=== PATIENT | male | born 1980 | race Caucasian/White ===

== ENCOUNTER 2017-05-21 18:21 | Emergency (ER) | payer OTHER ==
[~2017-05-21] VITALS: Ht 175.3 cm; Wt 81.6 kg
[~2017-05-21 18:21] MED LIST: DICL100G13 TOP; GABA-488 PO; HYDR-757 PO; IBP800T PO; PROP160C2 PO
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
[2017-05-21] MEDS ORDERED: fentaNYL INJECTION 100 MCG/2 ML AMP IVP ONE (18:45)
[2017-05-21] MEDS ORDERED: NS 100 ML (IVPB) BAG IV ONE (19:15)
[2017-05-21] MEDS ORDERED: IOHEXOL 350 MG/ML 100 ML (OMNIPAQUE 350) VIAL IV ONE (19:15)
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
[2017-05-21 19:43] LABS: BASOPHILS % (AUTO) 0 % (0-10); EOSINOPHILS # (AUTO) 0.3 10^3/uL (0.0-0.3); EOSINOPHILS % (AUTO) 3 % (0-10); LYMPHOCYTES % (AUTO) 20 % (12-44); MEAN CORPUSCULAR HEMOGLOBIN 31 PG (25-34); MEAN CORPUSCULAR HGB CONC 35 G/DL (32-36); MEAN CORPUSCULAR VOLUME 88 FL (80-99); MEAN PLATELET VOLUME 10.7 FL (7.4-10.4); MONOCYTES # (AUTO) 0.5 X 10^3 (0.0-1.0); MONOCYTES % (AUTO) 5 % (0-12); NEUTROPHILS # (AUTO) 6.9 X 10^3 (1.8-7.8); NEUTROPHILS % (AUTO) 72 % (42-75); PLATELET COUNT 218 10^3/uL (130-400); RED BLOOD COUNT 4.56 10^6/uL (4.35-5.85); RED CELL DISTRIBUTION WIDTH 12.6 % (10.0-14.5); WHITE BLOOD COUNT 9.7 10^3/uL (4.3-11.0)
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
[2017-05-21 20:04] LABS: ALANINE AMINOTRANSFERASE 38 U/L (0-55); ALBUMIN 4.2 GM/DL (3.2-4.5); ANION GAP 9 MMOL/L (5-14); ASPARTATE AMINO TRANSFERASE 25 U/L (5-34); BILIRUBIN,TOTAL 0.7 MG/DL (0.1-1.0); BLOOD UREA NITROGEN 11 MG/DL (7-18); BUN/CREATININE RATIO 14; CALCIUM 8.7 MG/DL (8.5-10.1); CARBON DIOXIDE 22 MMOL/L (21-32); CHLORIDE 107 MMOL/L (98-107); CREATININE SERUM 0.81 MG/DL (0.60-1.30); GFR ESTIMATED > 60; GLUCOSE 94 MG/DL (70-105); POTASSIUM 3.6 MMOL/L (3.6-5.0); SODIUM 138 MMOL/L (135-145); TOTAL PROTEIN 6.7 GM/DL (6.4-8.2)
[2017-05-21] MEDS ORDERED: KETOROLAC 30 MG/ML VIAL IVP ONE (20:30)
[2017-05-21] MEDS ORDERED: HYDR-757 PO (20:39)
[2017-05-21 21:09] VITALS: BP 118/89
== END 2017-05-21 21:09 | disposition home or self-care (01) ==
LOC: EDUNIT# 18:21 → ER 18:22
DX: M25.552 Pain in left hip; V49.40XA Driver injured in collision with unspecified motor vehicles in traffic accident, initial encounter; Z87.828 Personal history of other (healed) physical injury and trauma; F41.9 Anxiety disorder, unspecified; Z90.89 Acquired absence of other organs
CPT/HCPCS: 36415; 70450; 71260; 72125; 73552; 73590; 74177; 80053; 83690; 85025; 96374; 96375

== ENCOUNTER → 2017-06-12 | Outpatient (CLI) | payer OTHER ==
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
== END ==
LOC: RAD 09:15
PROVIDERS: ATTEND Nurse Practitioner Family
DX: M79.605 Pain in left leg (principal)
CPT/HCPCS: 73700

== ENCOUNTER → 2017-07-03 | Outpatient (CLI) | payer OTHER ==
--- NOTE | 2017-07-03 14:44 | Diagnostic Imaging Report ---
PROCEDURE: MRI left joint lower extremity without contrast. TECHNIQUE: Multiplanar, multisequence non contrast-enhanced MRI of the left lower extremity was accomplished. INDICATION: Medial left knee pain and swelling. FINDINGS: There is no significant effusion. No Robles's cyst. The extensor mechanism appears intact. There is mild edema in the superficial infrapatellar bursa. The PCL and the ACL appear intact. Posterior horn of the medial meniscus demonstrates increased signal with no definite extension into the meniscus articular surface to confirm tear. The lateral meniscus appears intact. The MCL and the lateral collateral ligament complex appears intact. There is no significant marrow signal abnormality. The articular cartilage demonstrates no significant thinning or focal defects. The signal and bulk in the muscles around the knee appear unremarkable. IMPRESSION: 1. There is intrasubstance increased signal in the posterior horn of the medial meniscus may relate to myxoid degeneration with no extension of the abnormal signal to the articular surface of the meniscus to confirm presence of a tear. 2. Mild nonspecific edema along the area of the superficial infrapatellar bursa. Dictated by: Dictated on workstation # [id number]
== END ==
LOC: RAD 08:52
PROVIDERS: ATTEND Nurse Practitioner
DX: S89.92XA Unspecified injury of left lower leg, initial encounter (principal); R60.0 Localized edema; X58.XXXA Exposure to other specified factors, initial encounter; Y99.8 Other external cause status
CPT/HCPCS: 73721

== ENCOUNTER 2017-09-24 11:22 | Outpatient (RCR) | payer OTHER | END 2017-10-14 13:45 | disposition home or self-care (01) | PROVIDERS: ATTEND Nurse Practitioner | DX: M70.52 Other bursitis of knee, left knee (principal); V89.2XXA Person injured in unspecified motor-vehicle accident, traffic, initial encounter ==

== ENCOUNTER 2019-03-07 17:32 | Emergency (ER) | payer OTHER ==
[~2019-03-07] VITALS: Ht 175.3 cm; Wt 83.9 kg
[~2019-03-07 17:32] MED LIST changes: +HYDR-4226 PO
--- OUTSIDE RECORDS SUMMARY | 2019-03-07 17:37 | XMS REPORT ---
Author Author DUYEN BLANCO [facility] Address [address] [place] [address] Care Team Providers Care Compliance Manager Name Role Phone DUYEN BLANCO Unavailable PROBLEMS Type Condition ICD9-CM Code XQU14-AX Code Onset Dates Condition Status SNOMED Code Problem Insomnia G47.00 Active 248809264 Problem Persistent migraine aura without cerebral infarction and without status migrainosus, not intractable G43.509 Active 478569257 Problem Acute sinusitis, unspecified 461.9 Active 47070936 Problem Allergic rhinitis, cause unspecified 477.9 Active 78207182 Problem Left leg pain M79.605 Active 452117193 ALLERGIES No Information ENCOUNTERS Encounter Location Date Diagnosis [place] [id number] [place] [id number] Nov, Insomnia G47.00 and Persistent migraine aura without cerebral infarction and without status migrainosus, not intractable G43.509 [address] [place] [id number] Aug, Insomnia G47.00 and Persistent migraine aura without cerebral infarction and without status migrainosus, not intractable G43.[address] [id number] [id number] Aug, Insomnia G47.[address] [place] [address] [id number] May, Insomnia G47.00 and Persistent migraine aura without cerebral infarction and without status migrainosus, not intractable G43.[address] [place] [id number] Apr, Insomnia G47.[address] [place] [id number] Apr, [facility] [address] [address] Sep, Peripheral neuralgia M79.2 and Contusion of left lower extremity, initial encounter S80.12XA [place] [address] [address] Sep, Peripheral neuralgia M79.2 [place] [address] [address] Jul, Pes anserine bursitis M70.50 [place] [address] [address] Jun, Chondromalacia, left knee M94.262 [place] [address] [address] 09 Jun, 2017 Tear of medial meniscus of left knee, current, unspecified tear type, initial encounter S83.242A [address] [id number] Jun, [address] [id number] Jun, Left leg pain M79.[address] [id number] May, [address] [id number] May, [address] [id number] May, Left leg pain M79.[address] [id number] May, Cervicalgia M54.2 and Contusion of left lower extremity, initial encounter S80.12XA [place] [address] [address] 14 Nov, 2014 [place] [address] [address] 13 Nov, 2014 [place] [address] [address] Oct, [facility] [address] [facility] [id number] [place] [address] Oct, [facility] [address] [facility] [id number] [place] [id number] Sep, [facility] [address] [facility] [id number] [place] [address] Sep, [place] [address] [facility] [id number] [address] Aug, IMMUNIZATIONS No Known Immunizations SOCIAL HISTORY Never Assessed REASON FOR VISIT PLAN OF CARE VITAL SIGNS MEDICATIONS No Known Medications RESULTS No Results PROCEDURES No Known procedures INSTRUCTIONS MEDICATIONS ADMINISTERED No Known Medications MEDICAL (GENERAL) HISTORY Type Description Date Medical History migraine headaches Surgical History cholecystectomy & part of pacreas duct Surgical History myringotomy with ventilating tube Surgical History adnoidectomy
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
--- NOTE | 2019-03-07 17:38 | NUR ---
PT BACK TO ED 10 W/O INCIDENT. PT TO BED, BECKY RAM TO BEDSIDE, MONITOR ON PT. NO DISTRESS NOTED AT THIS TIME.
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
--- OUTSIDE RECORDS SUMMARY | 2019-03-07 17:38 | XMS REPORT ---
Author Author ATA AGOSTO [facility] Address [address] [place] [address] Care Team Providers Care Medical Editor Name Role Phone ATA AGOSTO Unavailable PROBLEMS Type Condition ICD9-CM Code TMW90-LZ Code Onset Dates Condition Status SNOMED Code Problem Left leg pain M79.605 Active 076792552 Problem Allergic rhinitis, cause unspecified 477.9 Active 20315955 Problem Acute sinusitis, unspecified 461.9 Active 93903776 ALLERGIES No Information ENCOUNTERS Encounter Location Date Diagnosis [place] [address] [place] [id number] [place] [address] Sep, Peripheral neuralgia M79.2 and Contusion of left lower extremity, initial encounter S80.12XA [place] [address] [place] [id number] [place] [address] Sep, Peripheral neuralgia M79.2 [place] [address] [place] [id number] [place] [address] Jul, Pes anserine bursitis M70.50 [place] [address] [place] [id number] [place] [address] 16 Jun, 2017 Chondromalacia, left knee M94.262 [place] [address] [place] [id number] [place] [address] Jun, Tear of medial meniscus of left knee, current, unspecified tear type, initial encounter S83.242A [facility] [id number] [place] [address] [id number] Jun, [facility] [id number], [place] [id number] Jun, Left leg pain M79.605 [facility] [address] [place] [id number], [place] [id number] May, [facility] [address] [place] [id number] [id number] May, [facility] [id number], [place] [id number] May, Left leg pain M79.605 [facility] [address]00565100[place], [place] [id number] May, Cervicalgia M54.2 and Contusion of left lower extremity, initial encounter S80.12XA [facility] [address] [place] [address] [id number] [place] [address] Nov, [facility] [address] [place] [id number] [place] [address] Nov, [facility] [address] [place] [id number] [place] [address] Oct, [facility] [address] [place] [id number] [place] [address] Oct, [id number] [id number] Sep, [facility] [address] [place] [id number] [place] [address] Sep, [facility] [address]00565100[place], [place] [address] Aug, IMMUNIZATIONS No Known Immunizations SOCIAL HISTORY Never Assessed REASON FOR VISIT MRI f/u. Consult Ata Schilling RT(R) PLAN OF CARE Activity Details Follow Up 6 Weeks Reason: VITAL SIGNS Height 69 in 2017-07-04 Blood pressure systolic 118 mmHg 2017-07-04 Blood pressure diastolic 80 mmHg 2017-07-04 MEDICATIONS Unknown Medications RESULTS No Results PROCEDURES Procedure Date Ordered Result Body Site DRAIN/INJECT, JOINT/BURSA Jul 04, 2017 DEPO MEDROL 80 MG/ML Jul 04, 2017 INSTRUCTIONS MEDICATIONS ADMINISTERED No Known Medications MEDICAL (GENERAL) HISTORY Type Description Date Medical History migraine headaches Surgical History cholecystectomy & part of pacreas duct Surgical History myringotomy with ventilating tube Surgical History adnoidectomy
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
--- OUTSIDE RECORDS SUMMARY | 2019-03-07 17:38 | XMS REPORT ---
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 migrainosus, not intractable G43.509 Active 237506653 Problem Acute sinusitis, unspecified 461.9 Active 72940308 Problem Allergic rhinitis, cause unspecified 477.9 Active 45528251 Problem Left leg pain M79.605 Active 920202804 ALLERGIES No Information ENCOUNTERS Encounter Location Date Diagnosis [address] [place] [address] [id number] Aug, Insomnia G47.00 and Persistent migraine aura without cerebral infarction and without status migrainosus, not intractable G43.509 [place] [address] [facility] [id number][place] [phone] Aug, Insomnia G47.00 [address] [place] [address] [id number] May, Insomnia G47.00 and Persistent migraine aura without cerebral infarction and without status migrainosus, not intractable G43.[address] [id number] [id number] Apr, Insomnia G47.00 [address] [place] [address] [id number] Apr, [facility] [address] [place] [address] [id number] [place] [address] Sep, Peripheral neuralgia M79.2 and Contusion of left lower extremity, initial encounter S80.12XA [facility] [address] [place] [id number] [place] [address] Sep, Peripheral neuralgia M79.2 [facility] [address] [place] [id number] [place] [address] Jul, Pes anserine bursitis M70.50 [facility] [address] [place] [id number] [place] [address] Jun, Chondromalacia, left knee M94.262 [place] [address] [address] Jun, Tear of medial meniscus of left knee, current, unspecified tear type, initial encounter S83.242A [place] [address] [place] [id number] Jun, [address] [id number] Jun, Left leg pain M79.605 [place] [address] [place] [id number] May, [address] [id number] May, [place] [address] [place] [address] [id number] May, Left leg pain M79.[address] [id number] May, Cervicalgia M54.2 and Contusion of left lower extremity, initial encounter S80.12XA [place] [address] [place] [id number] [place] [address] Nov, [place] [address] [place] [id number] [place] [address] Nov, [place] [address] [address] Oct, [place] [address] [place] [id number] [place] [address] Oct, [place] [address] [place] [address] [phone] Sep, [place] [address] N [facility] [id number] [place] [address] Sep, [facility] [address] [facility] [id number], [place] [address] Aug, IMMUNIZATIONS No Known Immunizations SOCIAL HISTORY Never Assessed REASON FOR VISIT [facility] PLAN OF CARE VITAL SIGNS MEDICATIONS Medication Instructions Dosage Frequency Start Date End Date Duration Status Flonase 50 mcg/actuation 1-2 sprays by Nasal route 2 times per day in each nostril Sep, Active Augmentin 875-125 mg 1 tablet by Oral route 2 times per day for 14 day(s) Sep, Active ZyrTEC 10 mg 1 tablet 1 time per day Sep, Active Efmbwukl-Hehkdnrpi-CB 3.5-10,000-1 mg-unit/mL-% 4 drop by Otic route 4 times per day for 7 day(s) Sep, Active RESULTS No Results PROCEDURES No Known procedures INSTRUCTIONS MEDICATIONS ADMINISTERED No Known Medications MEDICAL (GENERAL) HISTORY Type Description Date Medical History migraine headaches Surgical History cholecystectomy & part of pacreas duct Surgical History myringotomy with ventilating tube Surgical History adnoidectomy
--- OUTSIDE RECORDS SUMMARY | 2019-03-07 17:38 | XMS REPORT ---
Author Author WALT GOLD [facility] Address [address] [place] [address] Care Team Providers Care Conduit Installer Name Role Phone WALT GOLD Unavailable PROBLEMS ALLERGIES ENCOUNTERS IMMUNIZATIONS No Known Immunizations SOCIAL HISTORY No smoking Hx information available REASON FOR VISIT PLAN OF CARE VITAL SIGNS MEDICATIONS RESULTS No Results PROCEDURES No Known procedures INSTRUCTIONS MEDICATIONS ADMINISTERED No Known Medications MEDICAL (GENERAL) HISTORY
--- OUTSIDE RECORDS SUMMARY | 2019-03-07 17:38 | XMS REPORT ---
Author Author DUYEN BLANCO [facility] Address [address] [place] [address] Care Team Providers Care Senior Report Developer Name Role Phone BLANCO DUYEN Unavailable PROBLEMS Type Condition ICD9-CM Code VZV79-BH Code Onset Dates Condition Status SNOMED Code Problem Left leg pain M79.605 Active 853871192 Problem Allergic rhinitis, cause unspecified 477.9 Active 70166210 Problem Acute sinusitis, unspecified 461.9 Active 54377709 ALLERGIES No Information ENCOUNTERS Encounter Location Date Diagnosis [place] [address] [address] 26 Sep, 2017 Peripheral neuralgia M79.2 and Contusion of left lower extremity, initial encounter S80.12XA [place] [address] [address] Sep, Peripheral neuralgia M79.2 [place] [address] [address] Jul, Pes anserine bursitis M70.50 [place] [address] [place] [id number] [place] [address] 16 Jun, 2017 Chondromalacia, left knee M94.262 [place] [address] [place] [id number] [place] [address] 09 Jun, 2017 Tear of medial meniscus of left knee, current, unspecified tear type, initial encounter S83.242A [place] [id number] [place] [address] [id number] 07 Jun, 2017 [facility] [address] [place] [address] [id number] Jun, Left leg pain M79.[address] [id number] May, [facility] [address] [place] [id number] [place] [phone] May, [facility] [id number] [place] [id number] May, Left leg pain M79.605 [facility] [id number] [place] [phone] May, Cervicalgia M54.2 and Contusion of left lower extremity, initial encounter S80.12XA [facility] [address] [id number] [place] [address] Nov, [facility] [address] [place] [id number] [place] [address] Nov, [facility] [address] [place] [id number] [place] [address] Oct, [facility] [address] [place] [id number] [place] [address] Oct, [facility] [address] [place] [id number] [place] [phone] Sep, [facility] [address] [place] [id number] [place] [address] Sep, [facility] [address]65[address], [place] [address] Aug, IMMUNIZATIONS No Known Immunizations SOCIAL HISTORY Never Assessed REASON FOR VISIT Waiting for call back PLAN OF CARE VITAL SIGNS MEDICATIONS Unknown Medications RESULTS No Results PROCEDURES No Known procedures INSTRUCTIONS MEDICATIONS ADMINISTERED No Known Medications MEDICAL (GENERAL) HISTORY Type Description Date Medical History migraine headaches Surgical History cholecystectomy & part of pacreas duct Surgical History myringotomy with ventilating tube Surgical History adnoidectomy
--- OUTSIDE RECORDS SUMMARY | 2019-03-07 17:38 | XMS REPORT ---
Author Author DUYEN BLANCO [facility] Address [address] [place] [address] Care Team Providers Care Marble Cleaner Name Role Phone BLANCO DUYEN Unavailable PROBLEMS Type Condition ICD9-CM Code WKY49-ZU Code Onset Dates Condition Status SNOMED Code Problem Left leg pain M79.605 Active 938749420 Problem Allergic rhinitis, cause unspecified 477.9 Active 12370559 Problem Acute sinusitis, unspecified 461.9 Active 14942253 ALLERGIES No Information ENCOUNTERS Encounter Location Date Diagnosis [place] [address] [address] 26 Sep, 2017 Peripheral neuralgia M79.2 and Contusion of left lower extremity, initial encounter S80.12XA [place] [address] [address] Sep, Peripheral neuralgia M79.2 [place] [address] [address] Jul, Pes anserine bursitis M70.50 [place] [address] [place] [id number] [place] [address] 16 Jun, 2017 Chondromalacia, left knee M94.262 [place] [address] [place] [id number] [place] [address] 09 Jun, 2017 Tear of medial meniscus of left knee, current, unspecified tear type, initial encounter S83.242A [place] [id number] [place] [id number] 07 Jun, 2017 [facility] [address] [place] [phone] Jun, Left leg pain M79.[address] [phone] May, [facility] [address] [id number] [phone] May, [facility] [id number] [phone] May, Left leg pain M79.605 [facility] [id number] [phone] May, Cervicalgia M54.2 and Contusion of left lower extremity, initial encounter S80.12XA [facility] [address] [place] [id number] [place] [phone] Nov, [facility] [address] [place] [id number] [place] [phone] Nov, [facility] [address] [place] [id number] [place] [phone] Oct, [facility] [address] [place] [id number] [place] [phone] Oct, [facility] [address] [id number] [phone] Sep, [facility] [address] [place] [id number] [place] [phone] Sep, [facility] [address] [address] Aug, IMMUNIZATIONS No Known Immunizations SOCIAL HISTORY [...]
--- OUTSIDE RECORDS SUMMARY | 2019-03-07 17:38 | XMS REPORT ---
Author Author DUYEN BLANCO [facility] Address [address] [place] [address] Care Team Providers Care Waiter/Waitress Informal Name Role Phone DUYEN BLANCO Unavailable PROBLEMS Type Condition ICD9-CM Code QWZ85-XC Code Onset Dates Condition Status SNOMED Code Problem Insomnia G47.00 Active Problem Left leg pain M79.605 Active 539274881 Problem Allergic rhinitis, cause unspecified 477.9 Active 59048803 Problem Acute sinusitis, unspecified 461.9 Active 98788836 ALLERGIES No Information ENCOUNTERS Encounter Location Date Diagnosis [place] [id number] [place] [phone] May, [address] [id number] Apr, Insomnia G47.00 [place] [id number] [place] [id number] Apr, [place] [address] [address] 26 Sep, 2017 Peripheral neuralgia M79.2 and Contusion of left lower extremity, initial encounter S80.12XA [place] [address] [address] Sep, Peripheral neuralgia M79.2 [place] [address] [address] Jul, Pes anserine bursitis M70.50 [place] [address] [address] Jun, Chondromalacia, left knee M94.262 [place] [address] [address] Jun, Tear of medial meniscus of left knee, current, unspecified tear type, initial encounter S83.242A [facility] [id number] [place] [phone] Jun, [place] [id number] [place] [id number] Jun, Left leg pain M79.605 [place] [address] [place] [id number] [place] [id number] May, [facility] [address] [place] [id number] [place] [id number] May, [facility] [id number] [place] [id number] May, Left leg pain M79.605 [place] [id number] [place] [id number] May, Cervicalgia M54.2 and Contusion of left lower extremity, initial encounter S80.12XA [place] [address] [address] Nov, [place] [address] [place] [id number] [place] [phone] Nov, [facility] [address] [place] [id number] [place] [phone] Oct, [facility] [address] [place] [id number] [place] [phone] Oct, [place] [id number] [place] [phone] Sep, [facility] [address] [place] [id number] [place] [phone] Sep, [facility] [address] [address] Aug, IMMUNIZATIONS No Known Immunizations SOCIAL HISTORY Never Assessed REASON FOR VISIT Requests return call PLAN OF CARE VITAL SIGNS MEDICATIONS Unknown Medications RESULTS No Results PROCEDURES No Known procedures INSTRUCTIONS MEDICATIONS ADMINISTERED No Known Medications MEDICAL (GENERAL) HISTORY Type Description Date Medical History migraine headaches Surgical History cholecystectomy & part of pacreas duct Surgical History myringotomy with ventilating tube Surgical History adnoidectomy
--- OUTSIDE RECORDS SUMMARY | 2019-03-07 17:38 | XMS REPORT ---
Author Author DUYEN BLANCO [facility] Address [address] [place] [address] Care Team Providers Care Computer Instructor Name Role Phone BLANCO DUYEN Unavailable PROBLEMS Type Condition ICD9-CM Code YZZ10-XD Code Onset Dates Condition Status SNOMED Code Problem Left leg pain M79.605 Active 993924125 Problem Allergic rhinitis, cause unspecified 477.9 Active 48748865 Problem Acute sinusitis, unspecified 461.9 Active 89221484 ALLERGIES No Information ENCOUNTERS Encounter Location Date Diagnosis [place] [address] [address] 26 Sep, 2017 Peripheral neuralgia M79.2 and Contusion of left lower extremity, initial encounter S80.12XA [place] [address] [address] Sep, Peripheral neuralgia M79.2 [place] [address] [address] Jul, Pes anserine bursitis M70.50 [place] [address] [place] [id number] [place] [address] 16 Jun, 2017 Chondromalacia, left knee M94.262 [place] [address] [place] [id number] [place] [address] 09 Jun, 2017 Tear of medial meniscus of left knee, current, unspecified tear type, initial encounter S83.242A [place] [id number] [place] [id number] 07 Jun, 2017 [facility] [address] [place] [phone] Jun, Left leg pain M79.[address] [phone] May, [facility] [address] [place] [id number] [place] [phone] May, [facility] [id number] [place] [phone] May, Left leg pain M79.605 [facility] [id number] [place] [phone] May, Cervicalgia M54.2 and Contusion of left lower extremity, initial encounter S80.12XA [facility] [address] [place] [id number] [place] [phone] Nov, [facility] [address] [place] [id number] [place] [phone] Nov, [facility] [address] [place] [id number] [place] [phone] Oct, [facility] [address] [place] [id number] [place] [phone] Oct, [facility] [address] [place] [id number] [place] [phone] Sep, [facility] [address] [place] [id number] [place] [phone] Sep, [facility] [address] [address] Aug, IMMUNIZATIONS No Known Immunizations SOCIAL HISTORY Never Assessed REASON FOR VISIT CT results/work note PLAN OF CARE VITAL SIGNS MEDICATIONS Unknown Medications RESULTS No Results PROCEDURES No Known procedures INSTRUCTIONS MEDICATIONS ADMINISTERED No Known Medications MEDICAL (GENERAL) HISTORY Type Description Date Medical History migraine headaches Surgical History cholecystectomy & part of pacreas duct Surgical History myringotomy with ventilating tube Surgical History adnoidectomy
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
[2019-03-07] MEDS ORDERED: predniSONE 20 MG TAB ONE (17:40)
[2019-03-07] MEDS ORDERED: FAMOTIDINE 20 MG (PEPCID) TABLET ONE (17:40)
[2019-03-07] MEDS ORDERED: predniSONE 10 MG TAB PO ONE (17:45)
[2019-03-07] MEDS ORDERED: FAMOTIDINE 20 MG (PEPCID) TABLET PO ONE (17:45)
--- NOTE | 2019-03-07 17:48 | NUR ---
ET DAUGHTER TO BEDSIDE.
--- NOTE | 2019-03-07 18:07 | NUR ---
PT RESTING QUIETLY, FAMILY AT BEDSIDE. ICE PACK TO FACE. NO DISTRESS NOTED.
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
--- NOTE | 2019-03-07 18:36 | NUR ---
PT RESTING QUIETLY, ICE PACK ON FACE, FAMILY AT BEDSIDE. NO DISTRESS OR DISCOMFORT NOTED.
[2019-03-07 18:38] VITALS: BP 128/93
== END 2019-03-07 18:38 | disposition home or self-care (01) ==
LOC: EDUNIT# 17:32 → ER 17:33
DX: T63.461A Toxic effect of venom of wasps, accidental (unintentional), initial encounter (principal); T78.40XA Allergy, unspecified, initial encounter; F41.9 Anxiety disorder, unspecified; Z91.040 Latex allergy status; Z90.89 Acquired absence of other organs
CPT/HCPCS: 99283